=== PATIENT | female | born 2000 | race Caucasian/White ===

== ENCOUNTER 2019-01-04 00:35 | Emergency (ER) | payer OTHER, SELFPAY ==
[2019-01-04 00:44] VITALS: BP 114/65; PULSE 77; RESP 15; TEMP 36.8; O2SAT 96; BMI 19.0
--- NOTE | 2019-01-04 01:01 | ED.ASTHMA ---
HPI - Asthma General Chief Complaint: Asthma Stated Complaint: had an asthma attack at work Time Seen by Provider: 01/04/19 00:48 Source: patient Mode of arrival: ambulatory Limitations: no limitations History of Present Illness HPI Narrative: 18-year-old female with a known history of asthma. Has an albuterol inhaler and AeroChamber with her. She is currently working at an [employer]. She states that today secondary to the dust in the area she was having problems with her asthma. Used her inhaler several times. Went to the medical there at the [facility] where she received several nebulizer treatments and 40 mg of prednisone was seems to have improved her symptoms. She came from the [place] for evaluation because she states that the [facility] made her come. Upon arrival here patient has no symptoms. Related Data Previous Rx's Medication Instructions Recorded prednisone 40 mg PO DAILY 5 Days #10 tab 01/04/19 Allergies Allergy/AdvReac Type Severity Reaction Status Date / Time Iodinated Contrast- Oral and Allergy Verified 01/04/19 00:44 IV Dye Review of Systems Constitutional Denies fever(s) ENT Ears, Nose, Mouth, and Throat: Denies vertigo and Denies dizziness Cardiovascular Denies chest pain and Denies dyspnea Respiratory Denies cough, Denies dyspnea and Denies wheezing Gastrointestinal Gastrointestinal: Denies abdominal pain Integumentary/Breasts Denies rash Neurologic Denies vertigo and Denies dizziness Hematologic/Lymphatic Denies easy bleeding and Denies easy bruising Allergic/Immunologic Denies wheezing Exam Initial Vital Signs Initial Vital Signs: Vital Signs Temperature 98.3 F 01/04/19 00:44 Pulse Rate 77 01/04/19 00:44 Respiratory Rate 15 01/04/19 00:44 Blood Pressure 114/65 01/04/19 00:44 Pulse Oximetry 96 01/04/19 00:44 Const General: cooperative, comfortable, well developed, well groomed and No acute distress Orientation: alert, awake and oriented x3 Resp Effort & Inspection: normal respiratory effort Auscultation: clear to auscultation bilaterally Cardio Rate: regular rate Rhythm: regular rhythm Pulses: radial pulses present Skin Lesions: no lesions Rashes: no rashes Neuro General: alert, awake and oriented x3 Extrem General: normal to inspection and No edema Psych Appearance: grossly normal and well kempt [facility] Medical History Asthma (Acute) Social History Smoking Status: Unknown if ever smoked Social History Smoking Status: Unknown if ever smoked Course Vital Signs - 8 hr 01/04/19 00:44 Temperature 98.3 F Pulse Rate 77 Respiratory Rate 15 Blood Pressure 114/65 Pulse Oximetry 96 MDM - Asthma MDM Narrative Medical decision making narrative: Asymptomatic here in the emergency department. No respiratory distress. No hypoxia. Lungs are clear. Will send home with short course of steroids. She does have albuterol an AeroChamber with her. She was given return precautions and follow-up instructions. She expressed understanding and agreement with plan. Discharge Plan Departure Patient Disposition: Home Clinical Impression: Asthma Qualifiers: Asthma severity: unspecified severity Asthma persistence: unspecified Asthma complication type: unspecified Qualified Code(s): J45.909 - Unspecified asthma, uncomplicated Discharge Date/Time: 01/04/19 01:10 Interventions: ED Discharge Assessment Last Done: 01/04/19 01:10 Instructions: DI for Asthma -- Adult Activity Restrictions/Additional Instructions: Use the albuterol inhaler and spacer like we discussed. Use the steroids like we discussed as well. Return to the emergency department for any new or worsening symptoms Prescriptions: New prednisone 20 mg tablet 40 mg PO DAILY 5 Days Qty: 10 RF: 0
== END 2019-01-04 01:10 | disposition home or self-care (01) ==
PROVIDERS: Emergency Provider Emergency Medicine
DX: J45.909 Unspecified asthma, uncomplicated (principal); Y99.0 Civilian activity done for income or pay
CPT/HCPCS: 99282; 99283